=== PATIENT | female | born 1980 | race Caucasian/White ===

== ENCOUNTER → 2017-10-18 | Outpatient (CLI) | payer OTHER | LOC: FIMAGING 09:27 | PROVIDERS: ATTEND Obstetrics & Gynecology | DX: O09.522 Supervision of elderly multigravida, second trimester (principal); O44.02 Complete placenta previa NOS or without hemorrhage, second trimester; Z3A.20 20 weeks gestation of pregnancy ==

== ENCOUNTER → 2017-11-29 | Outpatient (CLI) | payer OTHER | LOC: FIMAGING 13:26 | PROVIDERS: ATTEND Obstetrics & Gynecology | DX: O09.522 Supervision of elderly multigravida, second trimester (principal); Z3A.26 26 weeks gestation of pregnancy ==

== ENCOUNTER 2018-02-25 10:12 | Inpatient (IN) | payer OTHER ==
[2018-02-25] MEDS ORDERED: OLIVE OIL 118 ML BTL MISC PRN (11:41)
[2018-02-25] MEDS ORDERED: TERBUTALINE SULFATE 1 MG/ML VIAL IV PRN (11:41)
[2018-02-25] MEDS ORDERED: LIDOCAINE 1% 300 MG/30 ML SDV SC PRN (11:41)
[2018-02-25] MEDS ORDERED: EPSOM SALT 454 GM TP PRN (11:41)
[2018-02-25] MEDS ORDERED: OXYTOCIN/RINGERS LACTATE 1,000 ML IV PRN (11:41)
[2018-02-25] MEDS ORDERED: MISOPROSTOL 200 MCG TAB PR PRN (11:41)
[2018-02-25] MEDS ORDERED: IBUPROFEN 600 MG TAB PO PRN (11:41)
[2018-02-25 12:08] LABS: PLATELET COUNT 264 10^3/uL (150-400)
[2018-02-25] MEDS ORDERED: OXYTOCIN 10 UNIT/ML VIAL ONE (12:17)
[2018-02-25] MEDS ORDERED: AMMONIA AROMATIC 1 EACH AMP IH ONE (12:17)
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
[2018-02-25] MEDS ORDERED: fentaNYL 2MCG/ML/BUP 0.1% RTU 100 ML BAG EP ONE (13:36)
[2018-02-25] MEDS ORDERED: BUPIVACAINE 0.25% 30 ML SDV ONE (13:36)
[2018-02-25] MEDS: LR 1,000 ML IV PRN ×2 (13:40→15:52)
--- NOTE | 2018-02-25 13:41 | PREANESOB ---
Obstetric Pre-Anesthesia Info - General Info NPO Start Time: 05:00 : 2 Para: 0 RAY: 03/06/18 Gestational Age: 38 week(s) and 5 day(s) - Info Status: Full Term - Labor Status Cervical Dilation per last OB SVE: 8 Amniotic Fluid Color: Clear Indications for Labor Analgesia: Pain Control Labor Epidural: Proposed Anesthesia Allergies/Adverse Reactions: Allergy/AdvReac Type Severity Reaction Status Date / Time animal dander Allergy Verified 02/25/18 13:00 ANIMAL D Allergy Uncoded 02/25/18 13:00 Home Medications: Medication Instructions Recorded Calcium Carbonate [Tums 500MG (*)] 500 mg PO PRN 02/25/18 Vit27&Calcium/Iron/FA 1 each PO DAILY 02/25/18 [ Rx 1 Tablet (RX)] Visit Medications: Generic Name Dose Route Start Last Admin Trade Name Freq PRN Reason Stop Dose Admin Lactated Ringer's 1,000 mls @ 0 mls/hr 02/25/18 11:41 Lr IV 02/26/18 11:40 PRN PRN SEE PROTOCOL CONDITIONS Protocol Per Protocol Oxytocin/Lactated Ringer's 1,000 mls @ 125 mls/hr 02/25/18 11:41 Pitocin 20 Units/Lr (Premix) IV PRN PRN Post bleeding Ibuprofen 600 mg 02/25/18 11:41 Motrin PO ONCE PRN post , pain Lidocaine HCl 300 mg 02/25/18 11:41 Lidocaine Hcl 1% SC 08/24/18 11:40 ONCE PRN episiotomy Magnesium Sulfate 454 gm 02/25/18 11:41 Epsom Salt TP 08/24/18 11:40 Q1H PRN perineal discomfort Misoprostol 800 - 1,000 mcg 02/25/18 11:41 Cytotec NC ONCE PRN Vaginal Atony/Bleeding Richardson Oil 118 ml 02/25/18 11:41 Sweet Oil MISC 08/24/18 11:40 ONCE PRN perineal massage Terbutaline Sulfate 0.25 mg 02/25/18 11:41 Brethine IV 08/24/18 11:40 ONCE PRN Tachysystole Discontinued Medications Generic Name Dose Route Start Last Admin Trade Name Freq PRN Reason Stop Dose Admin Ammonia (Aromatic Spirit) Confirm 02/25/18 12:17 Ammonia Aromatic Administered 02/25/18 12:18 Dose 1 each IH .STK-MED ONE Bupivacaine HCl Confirm 02/25/18 13:36 Sensorcaine 0.25% Sdv Administered 02/25/18 13:37 Dose 30 ml .ROUTE .STK-MED ONE Fentanyl/Bupivacaine HCl Confirm 02/25/18 13:36 Fentanyl/Bupivacaine/Ns 2 Mcg/Ml 0.1% (Premix Administered 02/25/18 13:37 Dose 100 ml EP .STK-MED ONE Oxytocin Confirm 02/25/18 12:17 Pitocin Administered 02/25/18 12:18 Dose 10 unit .ROUTE .STK-MED ONE - Anesthesia History Response to Local Anesthetics: Normal Anesthesia & Operative History: No Prior Problems Family Anesthesia History: Not Applicable - Vital Signs Latest Vital Signs (Nursing): SEE NURSING NOTES Height/Weight (Nursing): Height 165.1 cm Weight 103.419 kg - Focused Exam Neck exam: FROM Mallampati Score: Class 2 Mouth exam: normal dental/mouth exam Pulmonary: no respiratory distress Cardiovascular: regular rate and rhythym Labs: 02/25/18 11:40 02/25/18 11:40 Patient ABO/Rh B POSITIVE 02/25/18 11:40 Uric Acid 6.7 mg/dL (2.5-6.8) 02/25/18 11:40 Total Bilirubin 0.4 mg/dL (0.1-1.4) 02/25/18 11:40 Conjugated Bilirubin 0.2 mg/dL (0.0-0.5) 02/25/18 11:40 Unconjugated Bilirubin 0.2 mg/dL (0.0-1.1) 02/25/18 11:40 AST 28 IU/L (14-46) 02/25/18 11:40 ALT 28 IU/L (9-52) 02/25/18 11:40 Lactate Dehydrogenase 622 IU/L (313-618) H 02/25/18 11:40 - Plan Anesthetic Plan: RYANN Consent Signed and on Chart: Yes
[2018-02-25] MEDS ORDERED: PHENYLEPHRINE HCL 100 MCG/ML SYR IVP PRN (14:08)
[2018-02-25] MEDS ORDERED: ONDANSETRON 4 MG/2 ML VIAL IVP PRN (14:08)
[2018-02-25] MEDS ORDERED: LR 500 ML IV SCH (14:30)
[2018-02-25] MEDS ORDERED: fentaNYL 2MCG/ML/BUP 0.1% RTU 100 ML EP SCH (14:30)
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
[2018-02-25] MEDS ORDERED: OXYTOCIN/RINGERS LACTATE 30 UNIT/500 ML BAG IV ONE (18:40)
[2018-02-25] MEDS ORDERED: HYDROCORTISONE 0.5% CREAM TP PRN (19:58)
[2018-02-25] MEDS ORDERED: SIMETHICONE 80 MG TAB CHEW PO PRN (19:58)
--- NOTE | 2018-02-25 20:03 | OBDEL ---
Info Type: Vaginal Presentation at Delivery: Vertex (NGUYEN) L&D Analgesia/Anesthesia Type: Epidural GBS+: No Intrapartum Medications: Generic Name Dose Route Start Last Admin Trade Name Pao PRN Reason Stop Dose Admin Lactated Ringer's 1,000 mls @ 0 mls/hr 02/25/18 11:41 02/25/18 15:52 Lr IV 02/26/18 11:40 1,000 mls PRN PRN Administration SEE PROTOCOL CONDITIONS Protocol Per Protocol Fentanyl/Bupivacaine HCl 100 mls @ 0 mls/hr 02/25/18 14:30 02/25/18 14:00 Fentanyl/Bupivacaine/Ns 2 Mcg/Ml 0.1% (Premix EP 03/07/18 14:29 100 mls CONT SANDRA Administration Protocol As Directed - Hospital Course Intrapartum: 02/25/18 14:54 Pt is comfortable and resting, s/p epidural Indications for Delivery: Spontaneous Labor, SROM Vaginal Delivery - Delivery Provider Delivery Physician/CNM: Soledad Sotelo - Labor and Delivery Onset of Contractions Date: 02/25/18 Onset of Contractions Time: 03:30 Onset of Contractions Type: Spontaneous Rupture of Membranes Date: 02/25/18 Rupture of Membranes Time: 03:30 Rupture of Membranes Type: Spontaneous Amniotic Fluid Color: Clear Dilation Complete Date: 02/25/18 Dilation Complete Time: 18:00 Placenta Delivery Date: 02/25/18 Placenta Delivery Time: 19:26 Total Hours of Labor: 15 Laceration: Other (Specify) (Midline vaginal tear and R sulcal tear) Repair: 3-0, Vicryl (X3) Vaginal Sponge Count Correct: Yes Vaginal Needle Count Correct: Yes Vaginal Sweep Performed: Yes EBL: 500 cc Delivery Events: Nuchal Cord (loose x 1 -slipped on perineum) Delivery Comment: A viable male born over intact perineum under epidural anesthesia at 1922 in NGUYEN position. Loose nuchal x 1, slipped on perineum. Infant to maternal abdomen. Delayed cord clamping x 60 seconds. Cord clamped x 2 and then cut. Cord blood obtained. Placenta then delivered spontaneously intact with 3-vc. Inspection revealed midline vaginal tear repaired with 3-0 Vicryl, hemostasis noted. Then upon further inspection, a right sulcal tear noted that was repaired with 3-0 Vicryl x 2. Tissue was friable and was bleeding, but hemostasis was finally achieved. FF 1 below umbilicus and with fundal check was passage of 2 large clots. Uterus remained firm. EBL 500 cc; from vaginal tears and not uterine atony. Patient zaid well. No complications. Mother and baby boy in room in stable condition. [place] Data RAY: 03/06/18 Gestational Age: 38 week(s) and 5 day(s) Harper Delivery Date: 02/25/18 Delivery Time: 19:22 Sex of : Male ("Schuler") Score (1 Min): 8 Score (5 Min): 9 ICD10 Worksheet Patient Problems: Problems Problem Status Onset Leakage of amniotic fluid Acute Normal labor and delivery Acute PPH ( hemorrhage) Acute (spontaneous vaginal delivery) Acute - ICD10 Problem Qualifiers (1) Leakage of amniotic fluid (2) Normal labor and delivery (3) (spontaneous vaginal delivery) (4) PPH ( hemorrhage)
[2018-02-25] MEDS: ACETAMINOPHEN 325 MG TAB PO SCH (23:21)
[2018-02-26] MEDS: IBUPROFEN 600 MG TAB PO SCH ×4 (02:29→20:21)
[2018-02-26] MEDS: ACETAMINOPHEN 325 MG TAB PO SCH ×3 (05:38→18:06)
--- NOTE | 2018-02-26 08:16 | OBPP ---
Progress Note Assessment/Plan: Assessment: 37 yo [id number] PPD #1 s/p c/b R sulcus laceration, now with asymptomatic anemia. Plan: Continue pp cares, start iron for anemia. Tiffanie Liz MD, FACOG [facility] 02/26/18 12:20 Subjective/ Course: Pt doing well. Ambulating without lightheadedness or dizziness. Voiding without difficulty. Was requesting something for heartburn. Working with it security specialist on . 02/26/18 12:23 Objective: 02/26/18 05:45 02/25/18 11:40 Patient ABO/Rh B POSITIVE 02/25/18 11:40 Uric Acid 6.7 mg/dL (2.5-6.8) 02/25/18 11:40 Total Bilirubin 0.4 mg/dL (0.1-1.4) 02/25/18 11:40 Conjugated Bilirubin 0.2 mg/dL (0.0-0.5) 02/25/18 11:40 Unconjugated Bilirubin 0.2 mg/dL (0.0-1.1) 02/25/18 11:40 AST 28 IU/L (14-46) 02/25/18 11:40 ALT 28 IU/L (9-52) 02/25/18 11:40 Lactate Dehydrogenase 622 IU/L (313-618) H 02/25/18 11:40 Temp Pulse Resp BP Pulse Ox 36.7 C 81 18 111/78 92 02/26/18 05:48 02/26/18 05:48 02/26/18 05:48 02/26/18 05:48 02/26/18 05:48 gen - pleasant, NAD CV - RRR chest - CTAB abd - soft, fundus firm at u-2, + BS ext - BLE with trace edema, no calf tenderness perineum - repair intact, minimal edema Uterine Position/Fundal Height: Umbilicus -2 Uterine Tone: Firm
--- NOTE | 2018-02-26 09:35 | POSTANESTH ---
Post Anesthetic Evaluation Cardiovascular Status: Normal, Stable Respiratory Status: Normal, Stable Level of Consciousness/Mental Status: Can Participate in Eval, Alert and Oriented Pain Control: Adequate, Prn Tx Ordered Nausea/Vomiting Control: Adequate, Prn Tx Ordered Complications Possibly Related to Anesthesia: None Noted Notes: Comfortable laying in bed. Able to ambulate, tolerate PO, denies headache. Reports gradual continuing resolution of lower extremity blockade. Mild site tenderness at low back.
[2018-02-26] MEDS ORDERED: EPSOM SALT 454 GM TP ONE (09:58)
[2018-02-26] MEDS: FAMOTIDINE 20 MG TAB PO SCH ×2 (11:38→20:21)
[2018-02-26] MEDS: DOCUSATE SODIUM 100 MG CAP PO PRN (11:38)
[2018-02-26] MEDS: FERROUS SULFATE 140 MG TAB.ER PO SCH (18:06)
[2018-02-26 20:34] VITALS: BP 120/74
[2018-02-27] MEDS: IBUPROFEN 600 MG TAB PO SCH ×2 (02:17→09:19)
[2018-02-27] MEDS: ACETAMINOPHEN 325 MG TAB PO SCH ×4 (02:19→14:06)
[2018-02-27] MEDS: DOCUSATE SODIUM 100 MG CAP PO PRN (09:19)
[2018-02-27] MEDS: FAMOTIDINE 20 MG TAB PO SCH (09:19)
[2018-02-27] MEDS: FERROUS SULFATE 140 MG TAB.ER PO SCH (09:19)
--- NOTE | 2018-02-27 10:46 | OBPP ---
Progress Note Assessment/Plan: Assessment: PPD 2 s/p PPH and anemia on iron Plan: D/C home, iron daily 02/27/18 10:42 Subjective/ Course: Pt doing well. Ambulating without lightheadedness or dizziness. Voiding without difficulty. Was requesting something for heartburn. Working with life skills specialist on . 02/26/18 12:23 02/27/18 10:43 Pt doing well. bld is less than first day. working on BF and currently baby has good latch. Nipples have been sore. urinating fine. hydrating well. getting colostrum with pumping. Hasn't slept much. disc the PP Wellness therapy visit Objective: 02/26/18 05:45 02/25/18 11:40 Patient ABO/Rh B POSITIVE 02/25/18 11:40 Uric Acid 6.7 mg/dL (2.5-6.8) 02/25/18 11:40 Total Bilirubin 0.4 mg/dL (0.1-1.4) 02/25/18 11:40 Conjugated Bilirubin 0.2 mg/dL (0.0-0.5) 02/25/18 11:40 Unconjugated Bilirubin 0.2 mg/dL (0.0-1.1) 02/25/18 11:40 AST 28 IU/L (14-46) 02/25/18 11:40 ALT 28 IU/L (9-52) 02/25/18 11:40 Lactate Dehydrogenase 622 IU/L (313-618) H 02/25/18 11:40 Temp Pulse Resp BP Pulse Ox 36.5 C 100 18 120/74 95 02/26/18 20:00 02/26/18 20:00 02/26/18 20:00 02/26/18 20:00 02/26/18 20:00 Uterine Position/Fundal Height: Umbilicus -1 Uterine Tone: Firm Physical Exam - Physical Exam Abdomen: non-tender, soft, other (FF at umb -1, lochia normal) Extremities: non-tender, pedal edema (moderate) Skin: normal color, warm/dry Neuro/Psych: alert, normal mood/affect
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
== END 2018-02-27 15:10 | disposition home or self-care (01) | DRG 807 ==
LOC: FLD 10:12 → FOB 02-26 00:15
PROVIDERS: ADMIT Obstetrics & Gynecology; ATTEND Obstetrics & Gynecology
PROC: 10E0XZZ Delivery of Products of Conception, External Approach (ICD-10-PCS; principal; 2018-02-25)
PROC: 0HQ9XZZ Repair Perineum Skin, External Approach (ICD-10-PCS; principal; 2018-02-25)
DX: O70.0 First degree perineal laceration during delivery (principal); Z37.0 Single live birth; Z3A.38 38 weeks gestation of pregnancy; O69.82X0 Labor and delivery complicated by other cord entanglement, without compression, not applicable or unspecified
CPT/HCPCS: J2590; J3105